=== PATIENT | female | born 1965 | race Caucasian/White ===

== ENCOUNTER 2023-05-14 22:13 | Outpatient (CLI) | payer MEDICAID, SELFPAY | END 2023-05-14 23:59 | LOC: LAB.DROPOF 22:13 | PROVIDERS: PCP Nurse Practitioner Family; Visit Provider Nurse Practitioner Family | DX: R06.02 Shortness of breath; R05.8 Other specified cough; R53.83 Other fatigue | CPT/HCPCS: 87635 ==

== ENCOUNTER 2024-06-23 07:58 | Outpatient (CLI) | payer MEDICAID, SELFPAY ==
--- NOTE | 2024-06-23 08:04 | MR_ITS ---
FINAL REPORT CLINICAL HISTORY: chronic lt knee pain, medial swelling FINDINGS: Multi planar MR imaging was performed of the right knee. The anterior and posterior cruciate ligaments are intact. The quadriceps and patellar tendons are intact. The medial and lateral menisci are intact without evidence of tear. The medial and lateral collateral ligaments appear intact. The medial and lateral retinacula appear intact. There is an osteochondral defect along the articular surface of the medial femoral condyle and along the articular surface of the medial tibial plateau with associated marrow edema. Small joint effusion is identified. No evidence of soft tissue inflammatory reaction. 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 Reviewed, Interpreted and Dictated by [place] MD Transcribed by Kristie Keen Authenticated and [facility]
== END 2024-06-23 23:59 | disposition home or self-care (01) ==
LOC: RAD 08:00
PROVIDERS: PCP Family Medicine; Visit Provider Physician Assistant
DX: M23.92 Unspecified internal derangement of left knee (principal)
CPT/HCPCS: 73721